=== PATIENT | male | born 1995 | race Caucasian/White ===

== ENCOUNTER 2020-12-06 21:49 | Emergency (ER) | payer BC ==
[2020-12-06 21:53] VITALS: TEMP 97.8
--- NOTE | 2020-12-06 22:44 | XR ---
EXAMINATION TYPE: XR tibia fibula LT DATE OF EXAM: 12/06/2020 COMPARISON: NONE HISTORY: Leg pain TECHNIQUE: 2 views FINDINGS: The tibia and fibula appear intact. I see no fracture nor dislocation. Knee joint and ankle joint appear intact. IMPRESSION: Negative left tibia and fibula exam.
[2020-12-06 22:49] LABS: Basophils % (A) 0 %; Eosinophils # (A) 0.1 k/uL (0-0.7); Eosinophils % (A) 1 %; HCT 42.5 % (39.0-53.0); HGB 14.3 gm/dL (13.0-17.5); Lymphocytes # (A) 1.5 k/uL (1.0-4.8); Lymphocytes % (A) 11 %; MCH 27.6 pg (25.0-35.0); MCHC 33.7 g/dL (31.0-37.0); MCV 81.9 fL (80.0-100.0); Mean Platelet Volume 7.9; Monocytes # (A) 0.7 k/uL (0-1.0); Monocytes % (A) 5 %; Neutrophils # (A) 10.3 k/uL (1.3-7.7); Neutrophils % (A) 80 %; Platelet Count 255 k/uL (150-450); RBC 5.19 m/uL (4.30-5.90); WBC 12.9 k/uL (3.8-10.6)
[2020-12-06 23:04] LABS: ALT 62 U/L (4-49); AST 39 U/L (17-59); African American GFR (CKD) >90 (>60 ml/min/1.73 sqM); Albumin 4.5 g/dL (3.5-5.0); Alkaline Phosphatase 97 U/L (38-126); Anion Gap 12 mmol/L; Blood Urea Nitrogen 16 mg/dL (9-20); Calcium 9.2 mg/dL (8.4-10.2); Carbon Dioxide 19 mmol/L (22-30); Chloride 104 mmol/L (98-107); Glucose 166 mg/dL (74-99); Non-African American GFR(CKD) >90 (>60 ml/min/1.73 sqM); Potassium 4.2 mmol/L (3.5-5.1); Sodium 135 mmol/L (137-145); Total Bilirubin 0.5 mg/dL (0.2-1.3)
--- NOTE | 2020-12-06 23:10 | ED ---
General Adult HPI - General Chief complaint: Extremity Problem,Nontraumatic Stated complaint: L leg injury Time Seen by Provider: 12/06/20 22:01 Source: patient, RN notes reviewed Mode of arrival: ambulatory Limitations: no limitations - History of Present Illness Initial comments: Patient is a 25-year-old male that presents to the emergency department with a left lower leg erythema. He notes that he tripped over some grocery bags the other day. He notes that is nontender. He denied any other issues or complaints. His mom noted that the area is warm to the touch and she thinks that might of been a cellulitis a she brought him in for evaluation. Patient was in no apparent distress or pain while sitting up during exam and interview. He denied any chest pain short of breath headache nausea vomiting diarrhea constipation fever fatigue chills. - Related Data Previous Rx's Medication Instructions Recorded Sulfamethox-Tmp 800-160Mg [Bactrim 1 each PO Q12HR #20 tab 12/06/20 Ds] Allergies Allergy/AdvReac Type Severity Reaction Status Date / Time No Known Allergies Allergy Verified 12/06/20 23:26 Review of Systems ROS Statement: Those systems with pertinent positive or pertinent negative responses have been documented in the HPI. ROS Other: All systems not noted in ROS Statement are negative. Past Medical History Additional Past Medical History / Comment(s): autism History of Any Multi-Drug Resistant Organisms: None Reported Past Surgical History: No Surgical Hx Reported Past Psychological History: No Psychological Hx Reported Smoking Status: Never smoker Past Alcohol Use History: None Reported Past Drug Use History: None Reported General Exam Limitations: no limitations General appearance: alert, in no apparent distress Head exam: Present: atraumatic, normocephalic, normal inspection Eye exam: Present: normal appearance, PERRL, EOMI. Absent: scleral icterus, conjunctival injection, periorbital swelling Neck exam: Present: normal inspection Respiratory exam: Present: normal lung sounds bilaterally. Absent: respiratory distress, wheezes, rales, rhonchi, stridor Cardiovascular Exam: Present: regular rate, normal rhythm, normal heart sounds. Absent: systolic murmur, diastolic murmur, rubs, gallop, clicks Left Lower Leg exam: Present: normal inspection, full ROM, erythema (From the mid calf down). Absent: tenderness, swelling, abrasion, laceration, ecchymosis, deformity, crepitus, dislocation, palpable cord, Homans' sign Neurological exam: Present: alert, oriented X3 Psychiatric exam: Present: normal affect, normal mood Skin exam: Present: warm, dry, intact, normal color. Absent: rash Course Vital Signs 12/06/20 21:51 Temperature 97.8 F Pulse Rate 134 H Respiratory 20 Rate Blood Pressure 136/78 O2 Sat by Pulse 97 Oximetry Medical Decision Making - Medical Decision Making 25-year-old male with a left lower leg area of erythema. Basic labs, x-ray of the left lower leg ordered. Labs unremarkable. X-ray negative for any acute abnormalities. Given clinical signs symptoms patient most likely has a cellulitis and antibiotics will be sent to pharmacy. Case discussed with Dr. Fuentes. - Lab Data Result diagrams: 12/06/20 22:24 12/06/20 22:24 Lab Results 12/06/20 12/06/20 Range/Units 22:24 22:24 WBC 12.9 H (3.8-10.6) k/uL RBC 5.19 (4.30-5.90) m/uL Hgb 14.3 (13.0-17.5) gm/dL Hct 42.5 (39.0-53.0) % MCV 81.9 (80.0-100.0) fL MCH 27.6 (25.0-35.0) pg MCHC 33.7 (31.0-37.0) g/dL RDW 14.0 (11.5-15.5) % Plt Count 255 (150-450) k/uL MPV 7.9 Neutrophils % 80 % Lymphocytes % 11 % Monocytes % 5 % Eosinophils % 1 % Basophils % 0 % Neutrophils # 10.3 H (1.3-7.7) k/uL Lymphocytes # 1.5 (1.0-4.8) k/uL Monocytes # 0.7 (0-1.0) k/uL Eosinophils # 0.1 (0-0.7) k/uL Basophils # 0.0 (0-0.2) k/uL Sodium 135 L (137-145) mmol/L Potassium 4.2 (3.5-5.1) mmol/L Chloride 104 (98-107) mmol/L Carbon Dioxide 19 L (22-30) mmol/L Anion Gap 12 mmol/L BUN 16 (9-20) mg/dL Creatinine 0.86 (0.66-1.25) mg/dL Est GFR (CKD-EPI)AfAm >90 (>60 ml/min/1.73 sqM) Est GFR (CKD-EPI)NonAf >90 (>60 ml/min/1.73 sqM) Glucose 166 H (74-99) mg/dL Calcium 9.2 (8.4-10.2) mg/dL Total Bilirubin 0.5 (0.2-1.3) mg/dL AST 39 (17-59) U/L ALT 62 H (4-49) U/L Alkaline Phosphatase 97 (38-126) U/L Total Protein 7.0 (6.3-8.2) g/dL Albumin 4.5 (3.5-5.0) g/dL Disposition Clinical Impression: Cellulitis of left lower leg Disposition: HOME SELF-CARE Condition: Stable Instructions (If sedation given, give patient instructions): Cellulitis (ED) Additional Instructions: Please return to the Emergency Department if symptoms worsen or any other concer ns. Follow-up with primary care as needed. Take antibiotics as prescribed until complete. Is patient prescribed a controlled substance at d/c from ED?: No Referrals: None,Stated [Primary Care Provider] - 1-2 days Time of Disposition: 23:37
[2020-12-06 23:54] VITALS: BP 125/79; PULSE 110; RESP 18
== END 2020-12-06 23:53 | disposition home or self-care (01) ==
LOC: EEVIPCON 21:49 → EC 21:49
DX: L03.116 Cellulitis of left lower limb (principal); F84.0 Autistic disorder
CPT/HCPCS: 36415; 80053; 85025; 99283